=== PATIENT | male | born 1985 | race Caucasian/White ===

== ENCOUNTER 2018-10-17 05:29 | Emergency (ER) | payer OTHER ==
[~2018-10-17] VITALS: Ht 172.7 cm; Wt 61.2 kg
[~2018-10-17 05:29] MED LIST: ESCI20 PO; HYDACE5 PO; IBUP800 PO; OMEP20ER; OMEP20ER PO; RXHYDACE PO; RXPROM25 PO
== END 2018-10-17 07:00 | disposition home or self-care (01) ==
LOC: ER 05:29
DX: Z77.21 Contact with and (suspected) exposure to potentially hazardous body fluids (principal); Z79.899 Other long term (current) drug therapy; F41.9 Anxiety disorder, unspecified; F17.220 Nicotine dependence, chewing tobacco, uncomplicated
CPT/HCPCS: 99282

== ENCOUNTER → 2022-10-01 | Outpatient (CLI) | payer OTHER ==
[2022-10-05 10:13] LABS: HSV-1 DNA Negative (Negative); HSV-2 DNA Negative (Negative)
== END ==
LOC: LAB SHORT 08:04 → LAB 08:04
PROVIDERS: Nurse Practitioner Family
DX: L08.9 Local infection of the skin and subcutaneous tissue, unspecified (principal)
CPT/HCPCS: 87529

== ENCOUNTER 2023-01-27 17:48 | Emergency (ER) | payer OTHER ==
[~2023-01-27] VITALS: Ht 172.7 cm; Wt 70.3 kg
[2023-01-27 18:29] LABS: BASOPHILS ABSOLUTE AUTO 0.04 K/mm3 (0.00-0.23); BASOPHILS PERCENT AUTO 1 % (0-2); EOSINOPHILS ABSOLUTE AUTO 0.03 K/mm3 (0.00-0.68); EOSINOPHILS PERCENT AUTO 1 % (0-6); Hematocrit 38.9 % (37.0-53.0); Hemoglobin 13.9 g/dL (13.5-17.5); IMMATURE GRAN ABSOLUTE AUTO 0.03 K/mm3 (0.00-0.10); IMMATURE GRAN PERCENT AUTO 1 % (0-1); LYMPHOCYTES ABSOLUTE AUTO 0.82 K/mm3 (0.84-5.20); LYMPHOCYTES PERCENT AUTO 15 % (21-46); MONOCYTES ABSOLUTE AUTO 0.58 K/mm3 (0.16-1.47); MONOCYTES PERCENT AUTO 10 % (4-13); Mean Corpuscular HGB 32.1 pg (26.0-34.0); Mean Corpuscular HGB Conc 35.7 g/dL (31.5-36.5); Mean Corpuscular Volume 90 fL (80-100); NEUTROPHILS ABSOLUTE AUTO 4.06 K/mm3 (1.96-9.15); NEUTROPHILS PERCENT AUTO 73 % (41-73); Platelet Count 158 K/mm3 (150-400); RDW Coefficient Variation 12.3 % (11.7-14.2); RDW Standard Deviation 40.8 fL (35.1-46.3); Red Blood Cell Count 4.33 M/mm3 (4.30-5.90); White Blood Cell Count 5.56 K/mm3 (4.00-11.30)
[2023-01-27 18:45] LABS: Albumin, Blood 3.5 g/dL (3.4-5.0); Albumin/Globulin Ratio 1.2 (0.8-1.8); Bilirubin, Total 0.2 mg/dL (0.1-1.0); Bun/Creatinine Ratio 8.5 (12.0-20.0); Calcium, Blood 8.4 mg/dL (8.5-10.1); Creatinine, Blood 1.17 mg/dL (0.60-1.20); Potassium, Blood 3.4 mmol/L (3.5-5.5); Total Protein, Blood 6.5 g/dL (6.4-8.2)
[2023-01-27 22:15] VITALS: BP 111/74
[2023-01-27 22:34] LABS: Source, Urine Clean Catch
[2023-01-27 22:59] LABS: Appearance, Urine Clear (Clear); Bilirubin, Urine Neg (Neg); Blood, Urine 5+ (Neg); Color, Urine Yellow (P-Yellow); Glucose Qualitative, Urine Neg (Neg); Ketones, Urine Neg (Neg); Leukocyte Esterase, Urine Neg (Neg); Nitrite, Urine Neg (Neg); Protein, Urine 2+ (Neg); Urobilinogen, Urine NORM (Normal)
[2023-01-27 23:11] LABS: White Blood Cells, Urine 0-2 /hpf (0-5)
[2023-01-27 23:12] LABS: Bacteria Few /hpf; Squamous Epithelial Cells Rare /hpf (Few)
[2023-01-27] MEDS ORDERED: DICY20 PO (23:38)
== END 2023-01-27 23:53 | disposition home or self-care (01) ==
LOC: ER 17:48
PROVIDERS: Emergency Medicine; Physician Assistant
DX: R10.11 Right upper quadrant pain (principal); R11.2 Nausea with vomiting, unspecified; F17.220 Nicotine dependence, chewing tobacco, uncomplicated
CPT/HCPCS: 51798; 71046; 74177; 76705; 80053; 81001; 83690; 85025; 93005; 93010; 96361; 96374-59; 96375; 99284-25; A9270; J1170; J1885; J2405; J7120; Q9967